=== PATIENT | male | born 1945 | race Caucasian/White ===

== ENCOUNTER 2016-06-09 21:59 | Observation (INO) | payer OTHER ==
[2016-06-09] MEDS ORDERED: NS 1,000 ML IV ONE (22:16)
[2016-06-09 22:23] LABS: % IMMATURE GRANULYOCYTES 0.3 % (0.0-1.1); ABSOLUTE IMMATURE GRANULOCYTES 0.04 10^3/uL (0.00-0.10); ADD DIFF? NO; ADD MORPH? NO; ADD SCAN? NO; ATYPICAL LYMPHOCYTE FLAG 0 (0-99); FRAGMENT RBC FLAG 0 (0-99); HEMATOCRIT 51.3 % (40.0-51.0); HEMOGLOBIN 17.1 g/dL (13.7-17.5); LEFT SHIFT FLG 0 (0-99); LIPEMIA HEMOLYSIS FLAG 80 (0-99); MEAN CELL HEMOGLOBIN 32.1 pg (27.9-34.1); MEAN CELL HEMOGLOBIN CONCENTR. 33.3 g/dL (32.4-36.7); MEAN CELL VOLUME 96.4 fL (81.5-99.8); MEAN PLATELET VOLUME 11.1 fL (8.7-11.7); PLATELET CLUMPS FLAG 0 (0-99); PLATELET COUNT 271 10^3/uL (150-400); RED BLOOD CELL COUNT 5.32 10^6/uL (4.40-6.38); RED CELL DISTRIBUTION WIDTH 13.1 % (11.5-15.2)
--- NOTE | 2016-06-09 22:24 | EDPHY ---
H & P HPI/ROS: HPI CHIEF COMPLAINT: Dizziness/lightheaded HISTORY OF PRESENT ILLNESS: This patient very pleasant 70-year-old male presents emergency room by EMS, he has significant past medical history for hypertension, hyperlipidemia, anxiety, PTSD, asthma, sarcoid, chronic kidney disease, BPH, presents to the emergency room with lightheadedness. He tells me since around 6:30 p.m. he developed lightheadedness. He tells me that it is only when he goes to stand up or walk. He denies lightheadedness dizziness nausea chest pain shortness of breath at rest. He tells me around 6 o'clock he took a Xanax dose which he normally takes up to 3 mg a day, he had a Sandra this evening with a shot of liquor, and then developed onset of lightheadedness. Patient tells me does normally drink 2 drinks of alcohol per evening. Tells me that every time he goes to stand up and walk he gets lightheaded, a feeling as if he is going to pass out or fall over. He does not describe a specific direction he is being pulled. He denies when this happens palpitations , shortness of breath, chest pain, headache or neck pain. No nausea or diaphoresis. States 1 on for over 2 hours he became concerned that he still could not walk so he called 911. He tells me he laid down in bed for prolonged period of time and this helped him with his lightheadedness he does not have lightheadedness when he is lying flat. Past Medical History: Hypertension, hyperlipidemia, anxiety, PTSD, asthma, BPH , sarcoid, chronic kidney disease Past Surgical History: right total hip, L5/S1 hemilaminectomy Social History: Daily use of alcohol 2 drinks per evening, daily use of Xanax, denies drugs, tobacco, marijuana Family History: noncontributory ROS REVIEW OF SYSTEMS: A comprehensive 10 point review of systems is otherwise negative aside from elements mentioned in the history of present illness. Exam Constitutional triage nursing summary reviewed, vital signs reviewed, awake/ alert. Eyes normal conjunctivae and sclera, EOMI, PERRLA. HENT normal inspection, atraumatic, moist mucus membranes, no epistaxis, neck supple/ no meningismus, no raccoon eyes. Respiratory clear to auscultation bilaterally, normal breath sounds, no respiratory distress, no wheezing. Cardiovascular rate normal, regular rhythm, no murmur, no edema, distal pulses normal. Gastrointestinal soft, non-tender, no rebound, no guarding, normal bowel sounds, no distension, no pulsatile mass. Genitourinary no CVA tenderness. Musculoskeletal no midline vertebral tenderness, full range of motion, no calf swelling, no tenderness of extremities, no meningismus, good pulses, neurovascularly intact. Skin pink, warm, & dry, no rash, skin atraumatic. Neurologic awake, alert and oriented x 3, AAOx3, moves all 4 extremities equally, motor intact, sensory intact, CN II-XII intact, normal cerebellar, normal vision, normal speech. Psychiatric normal mood/affect. Heme/Lymph/Immune no lymphadenopathy. Differential Diagnosis: includes but is not limited to in a particular order, orthostatic hypotension, vasovagal syncope, cardiac arrhythmia, electrolyte abnormality, dehydration, doubt acute CVA, doubt acute MO Medical Decision Making:This patient had an IV established be placed on full global recruiter will obtain EKG, blood work including electrolytes, troponin, patient had a chest x-ray, CT scan of his head without contrast will check orthostatics he will be hydrated with IV fluids normal saline 1 L been ordered. Re-evaluation: EKG interpretation by me on record in [facility] system. Impression time of EKG 07/26/2023 this is sinus rhythm rate of 69, there is motion artifact noted in lead 1, 2, AVR, V4 V5 V6. Otherwise unremarkable no acute ischemic changes specifically no ST elevation, ST depression, T-wave abnormality. No significant prolonged intervals. I will repeat this EKG shortly due to the motion artifact. CT scan of the head without IV contrast. The results of the study are negative for acute abnormality . The study was read by Dr. Palafox. I viewed the images myself on the PACS system. EKG interpretation by me on record in [facility] system. Impression time of EKG 23 awake, this is sinus rhythm rate of 65, there are borderline T-wave abnormalities noted in lead 2, 3, AVF otherwise unremarkable EKG. ED x-ray chest one view: this is negative for acute cardiopulmonary disease. 2349: I did re-evaluate this patient this time he is resting comfortably no distress he denies chest pain, shortness of breath, dizziness or lightheadedness at this time. It is noted he does have T-wave abnormalities in inferior leads on his repeat EKG when I compare this to his old EKG dated 2011 this is a change for him. Due to his creatinine of 1.6 , lightheadedness, unable to ambulate without feeling lightheaded, EKG changes I will admit him to the hospital for observation. Plan will be serial enzymes and serial EKGs, IV hydration. Re-evaluation in morning, if patient feels much better okay to DC. Most likely cause of lightheadedness a combination alcohol, Xanax, marijuana in the setting of dehydration. Spoke with Dr. Bernal the hospitalist service who agrees to admit the patient. Source: Patient, EMS - Personal History Tetanus Vaccine Date: Less than 10 years - Medical/Surgical History Hx Diabetes: No - Social History Smoking Status: Never smoked Constitutional: Initial Vital Signs Temperature (C) 36.4 C 06/09/16 21:59 Heart Rate 78 06/09/16 21:59 Respiratory Rate 16 06/09/16 21:59 Blood Pressure 138/93 H 06/09/16 21:59 O2 Sat (%) 97 06/09/16 21:59 O2 Delivery Mode Room Air Allergies/Adverse Reactions: ciprofloxacin HCl [From Cipro] Allergy (Severe, Verified 06/09/16 22:22) Anaphylaxis/HIVES Penicillins Allergy (Severe, Verified 06/09/16 22:22) Anaphylaxis/HIVES hydrocodone bitartrate [From Vicodin] Allergy (Verified 06/09/16 22:22) lisinopril Allergy (Verified 06/09/16 22:22) Home Medications: Medication Instructions Recorded ALPRAZolam [Xanax 0.5 MG (*)] 0.5 mg PO 5XD PRN 02/19/15 Atorvastatin Calcium [Lipitor 80 40 mg PO HS 02/19/15 mg] Pseudoephedrine HCl [Sudafed 30mg 30 mg PO DAILY 02/19/15 (OTC)] Valsartan [Diovan (*)] 80 mg PO DAILY 02/19/15 diphenhydrAMINE [Benadryl 25 MG 25 mg PO HS 02/19/15 (*)] Albuterol [Proventil Inhaler HFA 2 puffs IH DAILY PRN 06/09/16 (*)] Aspirin [Aspirin 81mg (*)] 81 mg PO DAILY 06/09/16 Triamcinolone Acetonide [Nasacort] 1 spray EACHNARE BID PRN 06/09/16 predniSONE 10 mg PO DAILY 06/09/16 Acetaminophen [Tylenol ES 500 mg 500 - 1,000 mg PO Q6HRS PRN #0 tab 06/10/16 (*)] Melatonin [Melatonin 3 MG (*)] 9 mg PO HS 06/10/16 Medical Decision Making - Data Points Laboratory Results: Laboratory Results 06/09/16 22:03 06/09/16 22:03 Medications Given: Discontinued Medications Alprazolam (Xanax) 0.5 mg PO BID [facility], 1928[facility]1983 Stop: 12/07/16 10:29 Last Admin: 06/10/16 10:33 Dose: 0.5 mg Aspirin (Aspirin) 81 mg PO DAILY [facility], [facility]1983 Stop: 12/07/16 10:29 Last Admin: 06/10/16 10:43 Dose: 81 mg Atorvastatin Calcium (Lipitor) 40 mg PO DAILY SARAY Stop: 12/07/16 10:29 Last Admin: 06/10/16 10:32 Dose: 40 mg Sodium Chloride (Ns) 1,000 mls @ 0 mls/hr IV ONCE ONE PRN Reason: As Directed Stop: 06/09/16 22:17 Last Admin: 06/09/16 22:30 Dose: 1,000 mls Sodium Chloride (Ns) 1,000 mls @ 100 mls/hr IV CONT SARAY Stop: 12/07/16 01:14 Last Admin: 06/10/16 01:44 Dose: 1,000 mls Prednisone (Prednisone) 10 mg PO DAILY SARAY Stop: 12/07/16 10:29 Last Admin: 06/10/16 10:43 Dose: 10 mg Pseudoephedrine HCl (Sudafed) 30 mg PO DAILY [facility], [facility]1983 Stop: 12/07/16 10:29 Last Admin: 06/10/16 10:38 Dose: Not Given Valsartan (Diovan) 80 mg PO DAILY [facility], [facility]1983 Stop: 12/07/16 10:59 Last Admin: 06/10/16 10:32 Dose: 80 mg Departure - Departure Disposition: [facility] Acute Clinical Impression: Lightheaded, Dehydration, Acute kidney injury Condition: Fair
[2016-06-09 22:26] LABS: INR 0.97 (0.83-1.16); PROTIME(PATIENT) 12.8 SEC (12.0-15.0)
--- NOTE | 2016-06-09 22:26 | CPEKG ---
Heart Rate: 69 RR Interval: 870 P-R Interval: 164 QRSD Interval: 98 QT Interval: 388 QTC Interval: 416 P [place]: 77 QRS [place]: 54 T Wave [place]: 28 EKG Severity - BORDERLINE ECG - EKG Impression: SINUS RHYTHM EKG Impression: PROBABLE LEFT ATRIAL ABNORMALITY Electronically Signed By: Bashir Rodriguez 11-Jun-2016 10:18:32
[2016-06-09 22:27] LABS: APTT 23.5 SEC (23.0-38.0)
[2016-06-09 22:30] LABS: ALANINE AMINOTRANSFERASE 34 IU/L (21-72); ALKALINE PHOSPHATASE 86 IU/L (38-126); ANION GAP 20 mEq/L (8-16); ASPARTATE AMINOTRANSFERASE 32 IU/L (17-59); BILIRUBIN,TOTAL 0.6 mg/dL (0.1-1.4); BILIRUBIN-CONJUGATED 0.3 mg/dL (0.0-0.5); BILIRUBIN-UNCONJUGATED 0.3 mg/dL (0.0-1.1); CALCIUM 10.2 mg/dL (8.5-10.4); CARBON DIOXIDE 26 mEq/l (22-31); CHLORIDE 99 mEq/L (97-110); CREATININE 1.6 mg/dL (0.7-1.3); GLOMERULAR FILTRATION RATE 43; GLUCOSE 119 mg/dL (70-100); POTASSIUM 3.8 mEq/L (3.5-5.2); SODIUM 145 mEq/L (134-144); TOTAL PROTEIN 8.3 g/dL (6.3-8.2)
[2016-06-09 22:42] LABS: TROPONIN I < 0.012 ng/mL (0-0.034)
[2016-06-09 22:47] LABS: CK-MB INTERPRETATION NEGATIVE (NEGATIVE); CREATINE KINASE-MB FRACTION 3.63 ng/mL (0-3.19)
--- NOTE | 2016-06-09 22:51 | DX ---
Portable Chest on June 09, 2016 at 2227 hours Clinical Indications: Chest pain and nausea. Comparison: August 25, 2015. Findings: Frontal view (only) shows clear lungs and no masses. Heart size and pulmonary vessels appea r normal. No evidence of pleural effusion. Some linear scarring is unchanged from prior examination Impression: No acute cardiopulmonary process.
--- NOTE | 2016-06-09 23:10 | CPEKG ---
Heart Rate: 65 RR Interval: 923 P-R Interval: 176 QRSD Interval: 100 QT Interval: 388 QTC Interval: 404 P [place]: 45 QRS [place]: 14 T Wave [place]: -5 EKG Severity - BORDERLINE ECG - EKG Impression: SINUS RHYTHM EKG Impression: PROBABLE LEFT ATRIAL ABNORMALITY EKG Impression: BORDERLINE T ABNORMALITIES, INFERIOR LEADS Electronically Signed By: Bashir Rodriguez 11-Jun-2016 10:18:23
[2016-06-09 23:32] LABS: ETHANOL SERUM 113 mg/dL (0-10)
[2016-06-10] MEDS ORDERED: ACETAMINOPHEN 500 MG TAB PO PRN (01:07)
[2016-06-10] MEDS ORDERED: NS 1,000 ML IV SCH (01:15)
[2016-06-10 01:16] VITALS: O2SAT 95
--- NOTE | 2016-06-10 04:04 | PDGENHP ---
[id number] is a 70-year-old male with a history of sarcoidosis, hypertension, BPH, osteoarthritis with degenerative joint disease of his L spine and L hip and anxiety disorder who presents to the ED complaining lightheadedness. Patient states he is currently being evaluated for left hip replacement surgery due to continued chronic pain in that joint. On day of presentation patient states he was home, didn't want to leave because of the snowstorm, but was feeling anxious. He decided to take CBD oil with dinner, as well as 1 of his prescribed Xanax and also made a Sandra. Shortly after ingesting this patient reports starting to feel dizzy and nauseous. He states understanding felt as if he were going to pass out so he went to his bed. He laid down and about 2 hours later again tried to walk, but could not because of a sensation of lightheadedness, so he decided to call EMS. He denies any falls, or associated chest pain, headache, palpitations, shortness of breath, vomiting. He also denies any recent travel, fevers, chills, cough, congestion. He reports normal appetite recently. On arrival to the ED patient was afebrile and hemodynamically stable. Labs revealed normal CBC and BMP, negative troponin. EKG revealed normal sinus rhythm without evidence of ischemia. CT head was obtained and did not show any acute abnormalities. Was given IV fluid hydration and admitted to the hospitalist service for further management. History Information - Allergies/Home Medication List Allergies/Adverse Reactions: ciprofloxacin HCl [From Cipro] Allergy (Severe, Verified 06/09/16 22:22) Anaphylaxis/HIVES Penicillins Allergy (Severe, Verified 06/09/16 22:22) Anaphylaxis/HIVES hydrocodone bitartrate [From Vicodin] Allergy (Verified 06/09/16 22:22) lisinopril Allergy (Verified 06/09/16 22:22) Home Medications: ALPRAZolam [Xanax 0.5 MG (*)] 0.5 mg PO 5XD PRN 02/19/15 [Last Taken 06/09/16] Atorvastatin Calcium [Lipitor 80 mg] 40 mg PO HS 02/19/15 [Last Taken 06/08/16] Pseudoephedrine HCl [Sudafed 30mg (OTC)] 30 mg PO DAILY 02/19/15 [Last Taken 09/20] Valsartan [Diovan (*)] 80 mg PO DAILY 02/19/15 [Last Taken 06/09/16] diphenhydrAMINE [Benadryl 25 MG (*)] 25 mg PO HS 02/19/15 [Last Taken 06/08/16] Albuterol [Proventil Inhaler HFA (*)] 2 puffs IH DAILY PRN 06/09/16 [Last Taken Unknown] Aspirin [Aspirin 81mg (*)] 81 mg PO DAILY 06/09/16 [Last Taken 06/08/16] Triamcinolone Acetonide [Nasacort] 1 spray EACHNARE BID PRN 06/09/16 [Last Taken Unknown] predniSONE 10 mg PO DAILY 06/09/16 [Last Taken 06/09/16] Melatonin [Melatonin 3 MG (*)] 9 mg PO HS 06/10/16 [Last Taken Unknown] I have personally reviewed and updated: family history, medical history, social history, surgical history - Past Medical History Additional medical history: HTn. BPH. HLD. PTSD/Anxiety disorder - Surgical History Reports: no pertinent surgical hx Additional surgical history: R hip replacement. 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 Review of Systems ROS: 10pt was reviewed & negative except for what was stated in HPI & below Physical Exam Temp Pulse Resp BP Pulse Ox 36.6 C 75 16 129/75 H 95 06/10/16 01:08 06/10/16 01:08 06/10/16 01:08 06/10/16 01:08 06/10/16 01:08 Constitutional: no apparent distress, appears nourished, not in pain Eyes: PERRL, anicteric sclera, EOMI Ears, Nose, Mouth, Throat: moist mucous membranes, hearing normal, ears appear normal, no oral mucosal ulcers Cardiovascular: regular rate and rhythym, no murmur, rub, or gallop, pulses symmetric bilaterally, No JVD, No edema Peripheral Pulses: 2+: dorsalis-pedis (R), dorsalis-pedis (L) Respiratory: no respiratory distress, no rales or rhonchi, clear to auscultation Gastrointestinal: normoactive bowel sounds, soft, non-tender abdomen, no palpable masses, No guarding, No rebound, No distension Genitourinary: no bladder fullness, no bladder tenderness Skin: warm, normal color, no rashes or abrasions, no fluctuance, No mottled Musculoskeletal: full muscle strength, no muscle tenderness, normal joint ROM, no joint effusions Neurologic: AAOx3, sensation intact bilaterally, CN II-XII Intact, No weakness, No numbness, No pronator drift Psychiatric: interacting appropriately, not anxious, not encephalopathic, thought process linear Lab Data & Imaging Review 06/10/16 05:00 06/10/16 05:00 WBC 11.72 10^3/uL (3.80-9.50) H 06/09/16 22:03 RBC 5.32 10^6/uL (4.40-6.38) 06/09/16 22:03 Hgb 17.1 g/dL (13.7-17.5) 06/09/16 22:03 Hct 51.3 % (40.0-51.0) H 06/09/16 22:03 MCV 96.4 fL (81.5-99.8) 06/09/16 22:03 MCH 32.1 pg (27.9-34.1) 06/09/16 22:03 MCHC 33.3 g/dL (32.4-36.7) 06/09/16 22:03 RDW 13.1 % (11.5-15.2) 06/09/16 22:03 Plt Count 271 10^3/uL (150-400) D 06/09/16 22:03 MPV 11.1 fL (8.7-11.7) 06/09/16 22:03 Neut % (Auto) 55.4 % (39.3-74.2) 06/09/16 22:03 Lymph % (Auto) 36.6 % (15.0-45.0) 06/09/16 22:03 Leake % (Auto) 6.8 % (4.5-13.0) 06/09/16 22:03 Eos % (Auto) 0.5 % (0.6-7.6) L 06/09/16 22:03 Baso % (Auto) 0.4 % (0.3-1.7) 06/09/16 22:03 Nucleat RBC Rel Count 0.0 % (0.0-0.2) 06/09/16 22:03 Absolute Neuts (auto) 6.48 10^3/uL (1.70-6.50) 06/09/16 22:03 Absolute Lymphs (auto) 4.29 10^3/uL (1.00-3.00) H 06/09/16 22:03 Absolute Monos (auto) 0.80 10^3/uL (0.30-0.80) 06/09/16 22:03 Absolute Eos (auto) 0.06 10^3/uL (0.03-0.40) 06/09/16 22:03 Absolute Basos (auto) 0.05 10^3/uL (0.02-0.10) 06/09/16 22:03 Absolute Nucleated RBC 0.00 10^3/uL (0-0.01) 06/09/16 22:03 Immature Gran % 0.3 % (0.0-1.1) 06/09/16 22:03 Immature Gran # 0.04 10^3/uL (0.00-0.10) 06/09/16 22:03 PT 12.8 SEC (12.0-15.0) 06/09/16 22:03 INR 0.97 (0.83-1.16) 06/09/16 22:03 APTT 23.5 SEC (23.0-38.0) 06/09/16 22:03 Sodium 145 mEq/L (134-144) H 06/09/16 22:03 Potassium 3.8 mEq/L (3.5-5.2) 06/09/16 22:03 Chloride 99 mEq/L (97-110) 06/09/16 22:03 Carbon Dioxide 26 mEq/l (22-31) 06/09/16 22:03 Anion Gap 20 mEq/L (8-16) 06/09/16 22:03 BUN 24 mg/dL (7-23) H 06/09/16 22:03 Creatinine 1.6 mg/dL (0.7-1.3) H 06/09/16 22:03 Estimated GFR 43 06/09/16 22:03 Glucose 119 mg/dL (70-100) H 06/09/16 22:03 Calcium 10.2 mg/dL (8.5-10.4) 06/09/16 22:03 Magnesium 2.0 mg/dL (1.6-2.3) 06/09/16 22:03 Total Bilirubin 0.6 mg/dL (0.1-1.4) 06/09/16 22:03 Conjugated Bilirubin 0.3 mg/dL (0.0-0.5) 06/09/16 22:03 Unconjugated Bilirubin 0.3 mg/dL (0.0-1.1) 06/09/16 22:03 AST 32 IU/L (17-59) 06/09/16 22:03 ALT 34 IU/L (21-72) 06/09/16 22:03 Alkaline Phosphatase 86 IU/L (38-126) 06/09/16 22:03 Creatine Kinase 188 IU/L (0-224) 06/09/16 22:03 CK-MB (CK-2) Fraction 3.63 ng/mL (0-3.19) H 06/09/16 22:03 CK-MB (CK-2) % 1.9 % (0.0-4.0) 06/09/16 22:03 Creatine Kinase Interp NEGATIVE (NEGATIVE) 06/09/16 22:03 Troponin I < 0.012 ng/mL (0-0.034) 06/09/16 22:03 NT-Pro-B Natriuret Pep 100 pg/mL (0-125) 06/09/16 22:03 Total Protein 8.3 g/dL (6.3-8.2) H D 06/09/16 22:03 Albumin 5.0 g/dL (3.5-5.0) 06/09/16 22:03 Lipase 97.0 IU/L (23-300) 06/09/16 22:03 Ethyl Alcohol 113 mg/dL (0-10) H 06/09/16 22:03 Visualized and Interpreted Chest x-ray results: Yes Chest X-Ray results: no infiltrate, normal Visualized and Interpreted imaging results: Yes Interpretation: CT head: no acute hemorrhage or infact noted Visualized and Interpreted EKG results: Yes EKG Interpretation: Positive for: normal sinsus rhythm (no st/t wave changes) Assessment & Plan Assessment: Patient is a 70-year-old male with history of hypertension, BPH, sarcoidosis, osteoarthritis and anxiety disorder who presents to the ED complaining of lightheadedness after ingesting alcohol, benzos and CBD oil. Labs revealed evidence of mild dehydration so he was admitted to the observation unit for further management. Plan: # lightheaded/pre-syncopal Likely related to acute ingestion of small amounts of alcohol, CBD oil and Xanax 0.5 mg. Labs do show note element of dehydration which could also be contributing. Low suspicion for cardiac etiology, however will rule out ACS and check TTE. Neuro exam is nonfocal. - trend troponins, repeat AM EKG - check TTE - IVF hydration overnight # elevated Cr It seems patient's baseline creatinine is 1.2-1.3, so it is slightly increased on presentation today. Likely pre-renal, will give IVF hydration and reassess. # chronic HTN BP stable on presentation, can cont home med. # sarcoidosis Resp status stable. Albuterol prn. # anxiety/PTSD Can consider discontinuing benzo use in this elderly patient. Will need to address this with his outpatient PMD/psychiatrist. # dispo: admit to observation unit # full code
[2016-06-10 05:11] VITALS: RESP 18
[2016-06-10 05:14] LABS: % IMMATURE GRANULYOCYTES 0.3 % (0.0-1.1); ABSOLUTE IMMATURE GRANULOCYTES 0.02 10^3/uL (0.00-0.10); ADD DIFF? NO; ADD MORPH? NO; ADD SCAN? NO; ATYPICAL LYMPHOCYTE FLAG 0 (0-99); FRAGMENT RBC FLAG 0 (0-99); HEMATOCRIT 40.4 % (40.0-51.0); HEMOGLOBIN 13.6 g/dL (13.7-17.5); LEFT SHIFT FLG 0 (0-99); LIPEMIA HEMOLYSIS FLAG 80 (0-99); MEAN CELL HEMOGLOBIN 31.9 pg (27.9-34.1); MEAN CELL HEMOGLOBIN CONCENTR. 33.7 g/dL (32.4-36.7); MEAN CELL VOLUME 94.6 fL (81.5-99.8); MEAN PLATELET VOLUME 11.1 fL (8.7-11.7); PLATELET CLUMPS FLAG 10 (0-99); PLATELET COUNT 212 10^3/uL (150-400); RED BLOOD CELL COUNT 4.27 10^6/uL (4.40-6.38); RED CELL DISTRIBUTION WIDTH 13.2 % (11.5-15.2)
[2016-06-10 05:33] LABS: ANION GAP 8 mEq/L (8-16); CALCIUM 8.9 mg/dL (8.5-10.4); CARBON DIOXIDE 26 mEq/l (22-31); CHLORIDE 106 mEq/L (97-110); CREATININE 1.2 mg/dL (0.7-1.3); GLOMERULAR FILTRATION RATE 60; GLUCOSE 103 mg/dL (70-100); POTASSIUM 4.2 mEq/L (3.5-5.2); SODIUM 140 mEq/L (134-144)
--- NOTE | 2016-06-10 06:35 | CT ---
CT Brain (Without Contrast) 2255 hours History: Dizziness. Comparison: None relevant. Technique: Axial computed tomographic images of the brain without contrast. Dose reduction techniques were utilized. Findings: Ventricles, cisterns, and sulci are widened consistent with atrophy. No hydrocephalus, mid line shift/herniation, or epidural/subdural hematomas. No acute intraparenchymal hemorrhage or mass e ffect. Cerebrovascular atherosclerosis. Hypodensities in the white matter of bilateral cerebral hemis pheres. Bone windows demonstrate no displaced fractures. Paranasal sinuses and mastoid air cells are clear. Impression: 1. Mild atrophy. 2. No acute hemorrhage, hydrocephalus, or mass effect. 3. Cerebrovascular atherosclerosis. 4. No definite acute infarct. 5. Mild microvascular ischemic disease. Critical results relayed by Dr. Palafox to Dr. Lovett on June 09, 2016.
[2016-06-10 06:49] LABS: COLOR YELLOW; LEUKOCYTE ESTERASE,URINE NEGATIVE (NEGATIVE); NITRITE,URINE NEGATIVE (NEGATIVE)
[2016-06-10 08:28] VITALS: BP 124/75; PULSE 88; TEMP 98
--- NOTE | 2016-06-10 09:38 | PDDCSUM ---
Discharge Summary Discharge Summary: Dates of service 06/10-06/10/16 Hospital course by problem # near syncope: in setting of inadvertently taking 4 x the usual amount of TBD oil, a shot of tequila, 0.5mg xanax and being on prednisone. No longer having any sxs of dizzyness etc. In discussion with patient, he was mostly feeling " too high", did not have any chest pain or palpitations etc. CT head neg, trops neg, labs essentially at baseline # abnormal ecg: concerns for inferior twave flattening compared to prior, with baseline fluctuation a bit difficult to be certain, echo ordered and pending. So long as no concerns on echo, will dc home. # ckd: at baseline # BPH: continue usual meds # anxiety/ptsd: continue xanax # skin rash: had recent biopsy, on prednisone # dispo: dc home F/u with PCP and Thor of cardiology
[2016-06-10] MEDS ORDERED: ALBUTEROL 60 PUFFS/8 GM MDI IH PRN (10:25)
[2016-06-10] MEDS ORDERED: ALPRAZolam 0.5 MG TAB PO PRN (10:25)
[2016-06-10] MEDS ORDERED: Triamcinolone Acetonide [Nasacort] 1 SPRAY EACHNARE PRN (10:25)
[2016-06-10] MEDS ORDERED: VALSARTAN 80 MG TAB PO SCH ×2 (10:30→11:00)
[2016-06-10] MEDS ORDERED: ATORVASTATIN CALCIUM 40 MG TAB PO SCH ×2 (10:30→21:00)
[2016-06-10] MEDS ORDERED: PSEUDOEPHEDRINE HCL 30 MG TAB PO SCH (10:30)
[2016-06-10] MEDS ORDERED: ALPRAZolam 0.25 MG TAB PO SCH (10:30)
[2016-06-10] MEDS ORDERED: ALPRAZolam 0.5 MG TAB PO SCH (10:30)
[2016-06-10] MEDS ORDERED: predniSONE 10 MG TAB PO SCH (10:30)
[2016-06-10] MEDS ORDERED: ASPIRIN 81 MG CHEWABLE TAB PO SCH (10:30)
[2016-06-10] MEDS ORDERED: MELATONIN 3 MG TAB PO SCH (21:00)
[2016-06-10] MEDS ORDERED: diphenhydrAMINE 25 MG CAP PO SCH (21:00)
== END 2016-06-10 11:46 | disposition home or self-care (01) ==
LOC: EDUNIT# → F1N 06-10 00:47
PROVIDERS: ADMIT Internal Medicine; ATTEND Internal Medicine
DX: R55 Syncope and collapse (principal); R94.31 Abnormal electrocardiogram [ECG] [EKG]; T40.7X5A Adverse effect of cannabis (derivatives), initial encounter; N18.9 Chronic kidney disease, unspecified; F41.9 Anxiety disorder, unspecified; E86.0 Dehydration; R21 Rash and other nonspecific skin eruption; I12.9 Hypertensive chronic kidney disease with stage 1 through stage 4 chronic kidney disease, or unspecified chronic kidney disease; N17.9 Acute kidney failure, unspecified; E78.5 Hyperlipidemia, unspecified; F43.10 Post-traumatic stress disorder, unspecified; J45.909 Unspecified asthma, uncomplicated; D86.9 Sarcoidosis, unspecified; N40.0 Benign prostatic hyperplasia without lower urinary tract symptoms; I67.2 Cerebral atherosclerosis; Z96.641 Presence of right artificial hip joint; Z96.619 Presence of unspecified artificial shoulder joint; Z88.0 Allergy status to penicillin
CPT/HCPCS: 70450; 71010; 93005; 99285; G0378; G0480

== ENCOUNTER → 2016-06-18 | Outpatient (CLI) | payer OTHER ==
--- NOTE | 2016-06-18 17:07 | CT ---
CT Scan of the Chest (Without Contrast) Clinical Indications: Sarcoidosis. Pulmonary nodules. Technique: Multidetector helical CT was performed from the superior thoracic inlet to the diaphragm. No intravenous contrast was given. The radiologist manipulated images at the computer workstation. Dose reduction techniques were utilized. Comparison: December 04, 2013. Findings: The upper lobes are clear. There is some stable linear atelectatic scarring in the right lower lobe. A 5-mm pulmonary nodule in the right lower lobe, series #3, image #154, is stable. Line ar scarring at the left base is stable. Heart size is normal. Mild to moderate coronary artery calc ification is present on this nongated study. The aorta and pulmonary vasculature are unremarkable. Small mediastinal lymph nodes are present. Limited examination of the upper abdomen is unremarkable. Impression: Stable bibasilar linear scarring and stable right lower lobe pulmonary nodule. These ne ed no further follow up.
== END ==
LOC: FIMAGING 14:24
PROVIDERS: ATTEND Internal Medicine Pulmonary Disease
DX: R91.1 Solitary pulmonary nodule (principal); D86.9 Sarcoidosis, unspecified

== ENCOUNTER 2016-07-07 07:21 | Inpatient (IN) | payer OTHER ==
[~2016-07-07 07:21] MED LIST: ACETAMINOPHEN 325 MG TAB PO ONE; CHLORHEXIDINE GLUC HIBICLENS 118 ML BTL TP ONE; DEXAMETHASONE 4 MG/ML VIAL IVP ONE; FAMOTIDINE 20 MG TAB PO ONE; ROPIVACAINE 0.2% 80 MG, EPINEPHrine 0.2 MG in BAG 0 ML IU ONE; TRANEXAMIC ACID 3,000 MG in NS 50 ML IRR ONE; VANCOMYCIN HCL/NORMAL SALINE 250 ML IV ONE
[2016-07-07] MEDS ORDERED: TRANEXAMIC ACID 3,000 MG/50 ML BAG IRR ONE (07:30)
[2016-07-07] MEDS ORDERED: SKIN ADHESIVE (DERMABOND) 1 EACH TP ONE (07:30)
[2016-07-07] MEDS ORDERED: MIDAZOLAM 2 MG/2 ML VIAL ONE (09:05)
[2016-07-07] MEDS ORDERED: PROPOFOL/EMULSION 500 MG/50 ML BOTTLE IV ONE ×2 (09:11→09:54)
[2016-07-07] MEDS ORDERED: fentaNYL 100 MCG/2 ML INJ ONE ×2 (09:46→11:12)
[2016-07-07] MEDS ORDERED: PHARMACY PAIN CONSULT 1 EA MISC PRN (10:40)
[2016-07-07] MEDS ORDERED: DIPHENOXYLATE/ATROPINE LOMOTIL 1 TAB PO PRN (10:40)
[2016-07-07] MEDS ORDERED: PROMETHAZINE HCL 25 MG/ML INJ IVP PRN (10:40)
[2016-07-07] MEDS ORDERED: ONDANSETRON DISINTEGRATING 4 MG TAB PO PRN (10:40)
[2016-07-07] MEDS ORDERED: MAGNESIUM HYDROXIDE 30 ML UDCUP PO PRN (10:40)
[2016-07-07] MEDS ORDERED: diphenhydrAMINE 25 MG CAP PO PRN (10:40)
[2016-07-07] MEDS ORDERED: BISACODYL 10 MG SUPP PR PRN (10:40)
[2016-07-07] MEDS ORDERED: CYCLOBENZAPRINE 10 MG TAB PO PRN (10:40)
[2016-07-07] MEDS ORDERED: PROMETHAZINE HCL 25 MG SUPPR PR PRN (10:40)
[2016-07-07] MEDS ORDERED: METOCLOPRAMIDE 10 MG/2 ML VIAL IVP PRN (10:40)
[2016-07-07] MEDS ORDERED: LACTULOSE 20 GM/30 ML UDCUP PO PRN (10:40)
[2016-07-07] MEDS ORDERED: POLYETHYLENE GLYCOL 3350 17 GM PKT PO PRN (10:40)
[2016-07-07] MEDS ORDERED: TEMAZEPAM 15 MG CAP PO PRN (10:40)
[2016-07-07] MEDS ORDERED: ONDANSETRON 4 MG/2 ML VIAL IVP PRN (10:40)
--- NOTE | 2016-07-07 10:40 | POSTOPPROG ---
Post Op Note Date of Operation: 07/07/16 Surgeon: Alvin Hernandez Kitchen Supervisor: edmar hernandez Anesthesiologist: dr. regalado Anesthesia: Spinal Pre-op Diagnosis: left hip OA Post-op Diagnosis: same Indication: left hip pain due to OA that failed conservative measures Procedure: L WALTER ant approach Findings: severe hip OA Inf/Abcess present in the surg proc area at time of surgery?: No EBL: 100-500
[2016-07-07] MEDS ORDERED: TRIAMCINOLONE ACETONIDE EACHNARE PRN (10:42)
[2016-07-07] MEDS ORDERED: NON-FORMULARY NEW DRUG (Albuterol [Proventil Inhaler Hfa (*)] 2 PUFFS) IH PRN (10:42)
[2016-07-07] MEDS ORDERED: ALPRAZolam 0.5 MG TAB PO PRN (10:42)
[2016-07-07] MEDS ORDERED: LR 1,000 ML IV SCH (11:00)
--- NOTE | 2016-07-07 11:43 | DX ---
Single view pelvis at 1115 hours History: Left total hip arthroplasty. Findings: Bilateral total hip arthroplasties appear in anatomic alignment. Severe degenerative disk d isease at L4-L5 and L5-S1 with disk space narrowing and osteophytes. No destructive pelvic lesions. C alcified phleboliths in the pelvis. Impression: Bilateral total hip arthroplasties appear in anatomical alignment.
[2016-07-07] MEDS ORDERED: HYDROCODONE/APAP 5/325 TAB ONE (12:12)
[2016-07-07] MEDS ORDERED: ALBUTEROL 60 PUFFS/8 GM MDI IH PRN (12:46)
[2016-07-07] MEDS: HYDROCODONE/APAP 5/325 TAB PO PRN ×2 (12:51→19:10)
--- NOTE | 2016-07-07 19:45 | GOP ---
[f rep st] OPERATIVE REPORT DATE OF OPERATION: 07/07/2016 SURGEON: David Abraham MD TISSUE COORDINATOR: Radha Abraham PA-C ANESTHESIA: Spinal. PREOPERATIVE DIAGNOSIS: Left hip osteoarthritis. POSTOPERATIVE DIAGNOSIS: Left hip osteoarthritis. PROCEDURE PERFORMED: Left total hip arthroplasty with x-ray. FINDINGS: ESTIMATED BLOOD LOSS: 200 cc. INDICATIONS: The patient has progressively worsening arthritis of the hip which has failed medical m anagement. The patient understands the treatment options including continued non-operative care and has selected surgical intervention. The patient has decided to undergo total hip arthroplasty via th e direct anterior approach, understanding the risks of the procedure including, but not limited to, n eurovascular injury, infection, persistent pain, component wear and loosening, deep venous thrombosis , pulmonary embolism, limb length inequality, hip instability (including dislocation), and intra-oper ative fractures. DESCRIPTION OF PROCEDURE: After proper identification of the patient including verification and jeri ing the surgical site, the patient was brought to the operating room and placed in the supine positio n. All bony prominences were well padded. Anesthesia was induced without complication and intraveno us prophylactic antibiotics were administered prior to skin incision. The operative leg was placed in the Trumpf Arch table extension and the well leg in a Yellofin leg ho lder. The patient was prepped and draped in the usual sterile fashion. The C-arm was draped for int ra-operative fluoroscopy to check acetabular position, femoral component position including leg lengt h and femoral offset. Attention was then drawn to surgical exposure of the hip. An incision was made with a #10 Bard Kymberly r blade starting 3 cm lateral and 3 cm distal to the anterior superior iliac spine measuring 8-10 cm and coursing distally toward the greater trochanter. The skin and subcutaneous tissues were divided sharply down to the fascia ankush. The fascia ankush was incised in line with the skin incision exposing the underlying tensor fascia ankush muscle. The muscle was bluntly elevated from the fascia and the f irst extracapsular Cobra retractor was placed laterally at the junction of the superior femoral neck and greater trochanter. The lateral femoral circumflex vessels were identified, cauterized, and divi ded with the Aquamantys bipolar cautery. The deep investing fascia of the TFL was divided to allow p michaelle mobilization of the muscle preventing damage during the retraction. The reflected head of the rectus femoris muscle was elevated off the anterior hip capsule and a medial Cobra retractor was plac ed just proximal to the lesser trochanter. The anterior capsulotomy was made sharply from the superolateral acetabulum to the saddle junction of the superior femoral neck and greater trochanter, then coursing inferomedial towards the lesser troc hanter. The retractors were then placed in the intracapsular position for femoral neck osteotomy. C orresponding to pre-operative templating, the osteotomy was made with the oscillating saw carefully p rotecting the greater trochanter and soft tissues. The femoral head was removed from the acetabulum with a corkscrew and confirmed to be severely arthritic with exposed bone, deformity and osteophytes. Similar findings were confirmed in the acetabulum. The Arch table extension was then placed in 40 degrees external rotation. Attention was then drawn to the acetabular preparation. After placement of the anterior and posterio r Cobra retractors outside the labrum and intracapsular, the circumferential labrum was removed sharp ly. The foveal contents were then removed and hemostasis obtained with cautery. The first reamer selected was sized using the removed femoral head. Reaming began with medialization and then commenced in 2 mm increments at 45 degrees of abduction and 15 degrees of anteversion using fluoroscopic navigation. Reaming ceased 1 mm less than the definitive acetabular component and jose a esponded to the pre-operative templating. The final acetabular component was inserted using fluorosc opy to achieve proper orientation yielding excellent purchase and stability in the acetabulum. The f inal acetabular liner was then placed and its seating confirmed. Attention was then turned to the femur. The Arch table extension was placed in extension and adducti on, delivering the osteotomized femoral neck into the wound. A 2-pronged femoral elevator was placed at the calcar and another at the tip of the greater trochanter. The posterolateral capsule was rele ased with cautery allowing mobilization of the femur lateral and anterior for preparation. The exter nal rotators were visualized and preserved. A curette and rongeur were used to open the starting poi nt for broaching. Serial broaching started with the #0 broach and ended with the broach that exhibit ed excellent fit in the proximal femur. A change in pitch during mallet strikes was accompanied by t he inability to advance the broach any further. The trial reduction was performed and fluoroscopic n avigation was utilized to check limb length. Adjustments were made to equalize limb length according ly. After the final trials were accepted they were removed and the wound was copiously lavaged. The femo ral component was seated to the same depth as the final broach and the femoral head was impacted onto the clean trunnion. The hip was then reduced for the final time and once more fluoroscopy was used to check that limb length equality was achieved. The wound was irrigated and closed in layers, the fascia ankush with 2-0 Quill, the subcutaneous tissue with 2-0 Quill, and the skin with Dermabond. Sterile dressings were applied. Final sharps and spon ge counts were accurate. The patient was then transferred to a hospital bed and brought to the [facility] room in stable condition. IMPLANTS: Accolade II size 5 x 132, acetabular component 56 mm Titanium, the liner is a Trident X3 3 6 mm, the head is a Biolox Delta 36 mm -2.5. /[id number]/MODL
[2016-07-07] MEDS ORDERED: DIAZEPAM 5 MG TAB PO PRN (19:59)
[2016-07-07] MEDS: ASPIRIN 325 MG TAB PO SCH (19:59)
[2016-07-07] MEDS: SENNOSIDES/DOCUSATE SODIUM TAB PO SCH (19:59)
[2016-07-07] MEDS: FAMOTIDINE 20 MG TAB PO SCH (19:59)
[2016-07-07] MEDS ORDERED: VANCOMYCIN 750 MG in D5W 150 ML IV ONE (20:30)
[2016-07-08] MEDS: HYDROCODONE/APAP 5/325 TAB PO PRN ×2 (03:10→07:53)
[2016-07-08 04:48] LABS: HEMATOCRIT 37.9 % (40.0-51.0); HEMOGLOBIN 12.7 g/dL (13.7-17.5)
[2016-07-08 05:36] LABS: ANION GAP 8 mEq/L (8-16); CALCIUM 8.5 mg/dL (8.5-10.4); CARBON DIOXIDE 24 mEq/l (22-31); CHLORIDE 105 mEq/L (97-110); CREATININE 1.2 mg/dL (0.7-1.3); GLOMERULAR FILTRATION RATE 60; GLUCOSE 117 mg/dL (70-100); POTASSIUM 4.2 mEq/L (3.5-5.2); SODIUM 137 mEq/L (134-144)
[2016-07-08] MEDS: SENNOSIDES/DOCUSATE SODIUM TAB PO SCH (07:53)
[2016-07-08] MEDS: ASPIRIN 325 MG TAB PO SCH (07:54)
[2016-07-08] MEDS: FAMOTIDINE 20 MG TAB PO SCH (07:54)
[2016-07-08 08:13] VITALS: BP 122/94; PULSE 76; RESP 18; TEMP 98.5; O2SAT 94
[2016-07-08] MEDS ORDERED: ATORVASTATIN CALCIUM 40 MG TAB PO SCH (09:00)
[2016-07-08] MEDS ORDERED: VALSARTAN 80 MG TAB PO SCH (09:00)
--- NOTE | 2016-07-08 09:13 | PDFACE2FAC ---
Face to Face Encounter 1. I certify that this patient is under my care and that I, or a nurse practitioner or physician's transition assistant working with me, had a oalg-hq-icfy encounter that meets the physician rmgr-gj-[id number] encounter requirements with this patient on 07/08/16. 2. I certify that based on my findings, the following services are medically necessary home health services: [X Nursing] [X Physical Therapy] [ Speech-Language Pathology] 3. The medical condition and clinical findings that support the need for specialized skills, knowledge and judgement of the above services are: [s/p L WALTER anterior approach, patient lives alone. must use FWW,cannot drive for several weeks postop] 4. I certify this patient is homebound* because [the patient's condition restricts their ability to leave their home except with the assistance of another individual or the aid of a supportive device.] patient must use FWW for ambulation, cannot drive for several weeks postop WALTER I certify that this patient is confined to his/her home and needs intermittent group home care, physical and/or speech therapy. This patient is under my care and I have authorized home health services. * Homebound is defined by Medicare as follows: absences from home require considerable and tacking effort and or for medical reasons or holiness services or are infrequent or of short duration when for other reasons*.
--- NOTE | 2016-07-08 09:15 | PDIAF ---
- Diagnosis Diagnosis: s/p L WALTER Code Status: Full Code - Medication Management Discharge Medications: Medications to Continue on Transfer ALPRAZolam [Xanax 0.5 MG (*)] 0.5 mg PO 5XD PRN 02/19/15 [Last Taken 07/07/16 06 :30] Atorvastatin Calcium [Lipitor 80 mg] 40 mg PO HS 02/19/15 [Last Taken 07/06/16] Pseudoephedrine HCl [Sudafed 30mg (OTC)] 30 mg PO BID 02/19/15 [Last Taken 07/06 12:00] Valsartan [Diovan (*)] 80 mg PO DAILY 02/19/15 [Last Taken 07/04/16] diphenhydrAMINE [Benadryl 25 MG (*)] 25 mg PO HS 02/19/15 [Last Taken 06/08/16] Albuterol [Proventil Inhaler HFA (*)] 2 puffs IH DAILY PRN 06/09/16 [Last Taken Unknown] Triamcinolone Acetonide [Nasacort] 1 spray EACHNARE BID PRN 06/09/16 [Last Taken 07/07/16] Melatonin [Melatonin 3 MG (*)] 10 mg PO HS 06/10/16 [Last Taken 07/06/16] Diazepam 5 mg PO HS PRN 07/07/16 [Last Taken Unknown] Aspirin [Aspirin 325 mg (*)] 325 mg PO DAILY #20 tab 07/08/16 [Last Taken Unknown] Hydrocodone/APAP 5/325 [[place] 5/325 (*)] 1 - 2 tab PO Q6HRS PRN #30 tab [Last Taken Unknown] Sennosides/Docusate Sodium [Senokot-S] 1 - 2 tab PO BID #0 tab 07/08/16 [Last Taken Unknown] Discharge Medications: Refer to the Discharge Home Medication list for PRN reason. - Orders Services needed: Home Care, [facility], Physical Therapy Home Care Face to Face: I certify that this patient was under my care and that I had the required [id number] encounter meeting the encounter requirements on the discharge day. My findings support the fact that the patient is homebound as defined in CMS Chapter 7 Medicare Benefits Manual 30.1.1, The condition of the patient is such that there exists a normal inability to leave home and consequently, leaving home would require a considerable and taxing effort. Diet Recommendation: no restrictions on diet Diet Texture: Regular Texture Diet Additional: Joint Protocol-Hip Replacement. Follow up with Dr. Copeland office as scheduled 07/27/16 at 1:45pm. After surgery instructions: Take Aspirin 325mg by mouth once daily for 3 weeks (helps to prevent blood clots). Wear thigh high DARELL hose on both legs during the daytime for 2 weeks (helps to prevent blood clots and decrease swelling in the surgical leg). It is ok to remove DARELL hose at night time to give your legs a break. It is common for swelling and bruising to occur in the entire surgical leg even extending to the foot, if concerned call Dr. Daly office [phone]. Weight bearing as tolerated. Use a walker for 7-14 days. Do exercises in the book 2-3 times a day. Ice at least 3-5 times a day for 30 minutes each time, if not more often. If you have further questions that are not addressed here, please look at the information packet handed to you at the preop appointment. Most will be answered on the FAQs, after surgery instructions and incision care pages. You may also call Dr. Min montemayor with questions as well. *IF YOU HAVE A LIFE THREATENING EMERGENCY, CALL 911. FOR NON-LIFE THREATENING ISSUES, PLEASE CALL DR. COPELAND OFFICE FIRST. A PHYSICIAN IS JUNIOR STAFF ACCOUNTANT 27/12. Incision/ Dressing Care: May shower tomorrow, please cover incision dressing (ewing one) with saran wrap or wxqtv-[id number] before showering as the incision dressing is water resistant, but not waterproof. Keep the incision (ewing) dressing clean and dry. If the incision dressing gets soiled or wet underneath, change dressing to the dressing given to you by the hospital. (ewing dressing will turn black if drainage occurs). Remove incision dressing (ewing one) two weeks after surgery. Leave steri strips alone. They will fall off on their own. Do not have anyone else remove the incision dressing prior to the stated recommendation (2 weeks after surgery). If there are incision concerns, contact Dr. Daly office. (Radha or Dr. Abraham may remove earlier if concerns arise). If incision site (ewing dressing) has drainage, call Dr. Daly office, . Radha and Dr. Abraham may ask you to come into the office for further evaluation - Follow Up Care Current Providers and Referrals: Alvin Abraham MD [Medical Doctor] - 07/27/16 2:00 pm Segun Swain [Primary Care Provider] -
--- NOTE | 2016-07-08 09:28 | SOAPPROG ---
SOAP Progress Note Assessment/Plan: Assessment: Patient is doing well POD 1 s/p L WALTER 1.Pain management: pain is well controlled on oral pain meds 2.Anemia: level is expected initially postop. Asymptomatic. Cont to monitor for symptoms 3.VTE ppx: recommend aspirin 325mg daily. Cont DARELL hoshayder and SCD 4. d/c planning: d/c to home today pending release from PT. Patient would like PT as he had after his R WALTER. Orders have been placed with case management. 5. postop urinary retention: straight cath'd yesterday, resolved today. Plan: 07/08/16 09:26 07/08/16 09:26 Subjective: Jason is doing well today, denies SOB, chest pain and N/V. Objective: Vital Signs Temp Pulse Resp BP Pulse Ox 36.9 C 76 18 122/94 H 94 07/08/16 08:00 07/08/16 08:00 07/08/16 08:00 07/08/16 08:00 07/08/16 08:00 Laboratory Results 07/08/16 04:37 07/08/16 04:37 07/07/16 07/08/16 07/09/16 05:59 05:59 05:59 Intake Total 3679 Output Total 1100 Balance 2579 LLE: incision dressing is clean and dry, NVI, +pf/df ICD10 Worksheet Patient Problems: Problems Problem Status Diagnosed Primary localized osteoarthritis of left hip Acute Osteoarthritis of hip Acute
--- NOTE | 2016-07-08 10:32 | GDS ---
[f rep st] DISCHARGE SUMMARY ADMISSION DIAGNOSIS: Left hip osteoarthritis. DISCHARGE DIAGNOSIS: Left hip osteoarthritis. PROCEDURE: Left total hip arthroplasty. VTE PROPHYLAXIS: Aspirin recommend 3 weeks daily. BRIEF DESCRIPTION OF HOSPITAL STAY: Patient was admitted for an elective joint arthroplasty. The pa nereida tolerated the procedure well and has passed physical therapy. The patient was given appropriat e antibiotic prophylaxis and venous thromboembolism prophylaxis. The patient's pain was well control led on oral pain medication, patient was holding down food, and had urinated. Decision was made to d ischarge the patient. The patient was given post-operative prescriptions pre-operatively. PLAN: Please follow up as scheduled on July 27, 2016 at 2:00 p.m. /[id number]/MODL
== END 2016-07-08 11:18 | disposition home health service (06) | DRG 470 ==
LOC: F3N 07:21
PROVIDERS: ADMIT Orthopaedic Surgery; ATTEND Orthopaedic Surgery
PROC: 0SRB04Z Replacement of Left Hip Joint with Ceramic on Polyethylene Synthetic Substitute, Open Approach (ICD-10-PCS; principal; 2016-07-07 09:15)
DX: M16.12 Unilateral primary osteoarthritis, left hip (principal); I10 Essential (primary) hypertension; D86.9 Sarcoidosis, unspecified; Z99.81 Dependence on supplemental oxygen
CPT/HCPCS: 97110-GP; 97116-GP; 97161-GP; 97165-GO; G8978-GP-CI; G8979-GP-CI; G8980-GP-CI; G8987-GO-CI; G8988-GO-CI; G8989-GO-CI; J0171; J1100; J2250; J2704; J2795; J3010; J3370

== ENCOUNTER → 2016-08-26 | Outpatient (CLI) | payer OTHER | LOC: BMCIMAGING 15:57 | PROVIDERS: ATTEND Family Medicine | DX: M25.572 Pain in left ankle and joints of left foot (principal) ==

== ENCOUNTER → 2016-09-28 | Outpatient (CLI) | payer OTHER | LOC: FIMAGING 12:13 | PROVIDERS: ATTEND Family Medicine | DX: M25.572 Pain in left ankle and joints of left foot (principal) ==

== ENCOUNTER → 2016-11-03 | Outpatient (CLI) | payer OTHER | LOC: BMCIMAGING 15:19 | PROVIDERS: ATTEND Family Medicine | DX: M25.541 Pain in joints of right hand (principal); M25.542 Pain in joints of left hand; N20.0 Calculus of kidney ==

== ENCOUNTER → 2016-11-03 | Outpatient (CLI) | payer OTHER | LOC: FIMAGING 18:50 | PROVIDERS: ATTEND Family Medicine | DX: R05 Cough (principal) ==

== ENCOUNTER → 2016-11-09 | Outpatient (CLI) | payer OTHER | LOC: FIMAGING 19:50 | PROVIDERS: ATTEND Family Medicine | DX: M75.111 Incomplete rotator cuff tear or rupture of right shoulder, not specified as traumatic (principal); M75.81 Other shoulder lesions, right shoulder; M75.51 Bursitis of right shoulder; M19.011 Primary osteoarthritis, right shoulder ==

== ENCOUNTER → 2016-11-09 | Outpatient (CLI) | payer OTHER | LOC: BMCIMAGING 13:00 | PROVIDERS: ATTEND Internal Medicine Endocrinology, Diabetes & Metabolism | DX: E04.2 Nontoxic multinodular goiter (principal) | CPT/HCPCS: 76536-PO ==

== ENCOUNTER → 2017-02-14 | Outpatient (CLI) | payer OTHER | LOC: BMCIMAGING 14:08 | PROVIDERS: ATTEND Family Medicine | DX: M19.071 Primary osteoarthritis, right ankle and foot (principal) ==

== ENCOUNTER → 2017-04-14 | Outpatient (CLI) | payer OTHER | LOC: BMCIMAGING 15:41 | PROVIDERS: ATTEND Family Medicine | DX: R05 Cough (principal) ==

== ENCOUNTER → 2017-05-17 | Outpatient (CLI) | payer OTHER | LOC: BMCIMAGING 13:10 | PROVIDERS: ATTEND Physician Assistant | DX: S99.921A Unspecified injury of right foot, initial encounter (principal) ==

== ENCOUNTER → 2017-07-11 | Outpatient (CLI) | payer OTHER | LOC: FIMAGING 14:22 | PROVIDERS: ATTEND Family Medicine | DX: R23.2 Flushing (principal); R06.02 Shortness of breath; R91.1 Solitary pulmonary nodule; Z87.09 Personal history of other diseases of the respiratory system ==

== ENCOUNTER → 2017-08-04 | Outpatient (CLI) | payer OTHER | LOC: BHFA 13:00 | PROVIDERS: ATTEND Internal Medicine Cardiovascular Disease | DX: J45.909 Unspecified asthma, uncomplicated (principal); D86.9 Sarcoidosis, unspecified | CPT/HCPCS: 94060; 94070; 94726; 94729; J7674 ==

== ENCOUNTER → 2017-10-19 | Outpatient (CLI) | payer OTHER | LOC: BHFA 11:00 | PROVIDERS: ATTEND Internal Medicine Interventional Cardiology | DX: D86.9 Sarcoidosis, unspecified (principal) ==

== ENCOUNTER → 2017-12-12 | Outpatient (CLI) | payer OTHER ==
[~2017-12-12] MED LIST changes: -ACETAMINOPHEN 325 MG TAB PO ONE; -CHLORHEXIDINE GLUC HIBICLENS 118 ML BTL TP ONE; -DEXAMETHASONE 4 MG/ML VIAL IVP ONE; -FAMOTIDINE 20 MG TAB PO ONE; +IOPAMIDOL (ISOVUE-300) 100 ML BTL ONE; -ROPIVACAINE 0.2% 80 MG, EPINEPHrine 0.2 MG in BAG 0 ML IU ONE; -TRANEXAMIC ACID 3,000 MG in NS 50 ML IRR ONE; -VANCOMYCIN HCL/NORMAL SALINE 250 ML IV ONE
== END ==
LOC: FIMAGING 12:02
PROVIDERS: ATTEND Internal Medicine Endocrinology, Diabetes & Metabolism
DX: E27.9 Disorder of adrenal gland, unspecified (principal)
CPT/HCPCS: 74170; Q9967; 82565-PO

== ENCOUNTER → 2018-03-29 | Outpatient (CLI) | payer OTHER | LOC: FIMAGING 13:14 | PROVIDERS: ATTEND Family Medicine | DX: Z13.820 Encounter for screening for osteoporosis (principal); M85.89 Other specified disorders of bone density and structure, multiple sites ==

== ENCOUNTER → 2018-04-19 | Outpatient (CLI) | payer OTHER | LOC: FIMAGING 14:42 | PROVIDERS: ATTEND Family Medicine | DX: R23.2 Flushing (principal); R68.89 Other general symptoms and signs; N28.1 Cyst of kidney, acquired; I70.0 Atherosclerosis of aorta | CPT/HCPCS: 74160; Q9967; 82565-PO ==

== ENCOUNTER → 2018-05-13 | Outpatient (CLI) | payer OTHER | LOC: FIMAGING 10:27 | PROVIDERS: ATTEND Family Medicine | DX: M51.36 Other intervertebral disc degeneration, lumbar region (principal); M43.16 Spondylolisthesis, lumbar region; M43.17 Spondylolisthesis, lumbosacral region; M99.73 Connective tissue and disc stenosis of intervertebral foramina of lumbar region; M54.6 Pain in thoracic spine ==

== ENCOUNTER → 2018-08-02 | Outpatient (CLI) | payer OTHER | LOC: FIMAGING 14:42 | PROVIDERS: ATTEND Physician Assistant Medical | DX: N20.0 Calculus of kidney (principal); I25.10 Atherosclerotic heart disease of native coronary artery without angina pectoris ==

== ENCOUNTER → 2018-08-25 | Outpatient (CLI) | payer OTHER ==
[~2018-08-25] MED LIST changes: -IOPAMIDOL (ISOVUE-300) 100 ML BTL ONE; +IOPAMIDOL (ISOVUE-370) 150 ML BTL IV ONE; +NITROGLYCERIN 0.4 MG BTL SL ONE
== END ==
LOC: FIMAGING 12:43
PROVIDERS: ATTEND Internal Medicine Interventional Cardiology
DX: D86.9 Sarcoidosis, unspecified (principal); I25.10 Atherosclerotic heart disease of native coronary artery without angina pectoris; J84.9 Interstitial pulmonary disease, unspecified
CPT/HCPCS: 71250; 75574; Q9967; 82565-PO

== ENCOUNTER → 2018-10-02 | Outpatient (CLI) | payer OTHER | DX: I25.10 Atherosclerotic heart disease of native coronary artery without angina pectoris (principal) | CPT/HCPCS: 78452; 93017; A9500 ==

== ENCOUNTER 2018-10-28 18:23 | Emergency (ER) | payer OTHER ==
[2018-10-28] MEDS ORDERED: KETOROLAC 30 MG/1 ML SDV IVP ONE (19:00)
[2018-10-28] MEDS ORDERED: HYDROmorphONE/DILAUDID 2 MG/ML INJ IVP ONE (19:00)
[2018-10-28] MEDS ORDERED: METOCLOPRAMIDE 10 MG/2 ML VIAL IVP ONE (19:00)
[2018-10-28] MEDS ORDERED: DEXAMETHASONE 10 MG/ML VIAL IVP ONE (19:00)
--- NOTE | 2018-10-28 19:04 | EDPHY ---
H & P Stated Complaint: bad hangover, LUGO, nausea Time Seen by Provider: 10/28/18 18:50 HPI/ROS: CHIEF COMPLAINT: Worsening headache HISTORY OF PRESENT ILLNESS: Patient is a 73-year-old man who comes to the emergency department complaining of worsening headache. He states that he has had mild intermittent headaches that begin in his neck and radiate up through his scalp. This began 4 months ago after he fell and tore his left rotator cuff. However he bought a new bed last week and ever since then he has had daily headaches although they have been mild. They tend to start in his neck and then radiates up the back his head. Today his headache has been more severe and he also developed some nausea. No vomiting. No vertigo. No focal weakness or deficits. No fevers. No new trauma. He can ambulate without difficulty. Severity: Moderate Modifying factors: He tried taking Aleve, Arelis-[place] and Pepto-Bismol at home without relief. REVIEW OF SYSTEMS: Constitutional: denies: chills, fever, recent illness, recent injury EENTM: denies: blurred vision, double vision, nose congestion Respiratory: denies: cough, shortness of breath Cardiac: denies: chest pain, irregular heart rate, lightheadedness, palpitations Gastrointestinal/Abdominal: denies: abdominal pain, diarrhea, vomiting, blood streaked stools Genitourinary: denies: dysuria, frequency, hematuria, pain Musculoskeletal: denies: joint pain, muscle pain Skin: denies: lesions, rash, jaundice, bruising Neurological: See HPI denies:numbness, paresthesia, tingling, dizziness, weakness Hematologic/Lymphatic: denies: blood clots, easy bleeding, easy bruising Immunologic/allergic: denies: HIV/AIDS, transplant 10 systems reviewed and negative except as noted EXAM: GENERAL: Well-appearing, well-nourished and in no acute distress. HEAD: Atraumatic, normocephalic. EYES: No nystagmus, Pupils equal round and reactive to light, extraocular movements intact, sclera anicteric, conjunctiva are normal. ENT: TMs normal, nares patent, oropharynx clear without exudates. Moist mucous membranes. NECK: Normal range of motion, supple without lymphadenopathy or JVD. LUNGS: Breath sounds clear to auscultation bilaterally and equal. No wheezes rales or rhonchi. HEART: Regular rate and rhythm without murmurs, rubs or gallops. ABDOMEN: Soft, nontender, normoactive bowel sounds. No guarding, no rebound. No masses appreciated. BACK: No CVA tenderness, no spinal tenderness, step-offs or deformities EXTREMITIES: Normal range of motion, no pitting or edema. No clubbing or cyanosis. NEUROLOGICAL: Cranial nerves II through XII grossly intact. Normal speech, normal gait. 5/5 strength, normal movement in all extremities, normal sensation , normal reflexes, normal cerebellar exam, no pronator drift. PSYCH: Normal mood, normal affect. SKIN: Warm, dry, normal turgor, no visible rashes or lesions. Source: Patient Exam Limitations: No limitations - Personal History Current Tetanus/Diphtheria Vaccine: Yes Current Tetanus Diphtheria and Acellular Pertussis (TDAP): Yes Tetanus Vaccine Date: Less than 10 years - Medical/Surgical History Hx Asthma: Yes Hx Chronic Respiratory Disease: No Hx Diabetes: No Hx Cardiac Disease: Yes Hx Renal Disease: Yes Hx Cirrhosis: No Hx Alcoholism: Yes Hx HIV/AIDS: No Hx Splenectomy or Spleen Trauma: No Other PMH: CAD without stents, + Ca score, PTSD, CKD, R hip surgery, BPH, HTN, hyperlipidemia, arthritis, sarcoidosis, asthma - Family History Significant Family History: No pertinent family hx - Social History Smoking Status: Never smoked Alcohol Use: Sober Drug Use: None Constitutional: Initial Vital Signs Temperature (C) 36.7 C 10/28/18 18:27 Heart Rate 78 10/28/18 18:27 Respiratory Rate 16 10/28/18 18:27 Blood Pressure 144/100 H 10/28/18 18:27 O2 Sat (%) 95 10/28/18 18:27 O2 Delivery Mode Room Air Allergies/Adverse Reactions: ciprofloxacin HCl [From Cipro] Allergy (Severe, Verified 07/08/16 11:38) Anaphylaxis/HIVES Penicillins Allergy (Severe, Verified 07/08/16 11:38) Anaphylaxis/HIVES oxycodone HCl [From OxyContin] Allergy (Intermediate, Verified 07/08/16 11:38) Other-Enter Comments lisinopril Allergy (Verified 07/08/16 11:38) Home Medications: Medication Instructions Recorded ALPRAZolam [Xanax 0.5 MG (*)] 0.5 mg PO 5XD PRN 02/19/15 Atorvastatin Calcium [Lipitor 80 40 mg PO HS 02/19/15 mg] Pseudoephedrine HCl [Sudafed 30mg 30 mg PO BID 02/19/15 (OTC)] Valsartan [Diovan (*)] 80 mg PO DAILY 02/19/15 diphenhydrAMINE [Benadryl 25 MG 25 mg PO HS 02/19/15 (*)] Albuterol [Proventil Inhaler HFA 2 puffs IH DAILY PRN 06/09/16 (*)] Triamcinolone Acetonide [Nasacort] 1 spray EACHNARE BID PRN 06/09/16 Melatonin [Melatonin 3 MG (*)] 10 mg PO HS 06/10/16 Diazepam 5 mg PO HS PRN 07/07/16 Aspirin [Aspirin 325 mg (*)] 325 mg PO DAILY #20 tab 07/08/16 Hydrocodone/APAP 5/325 [[place] 1 - 2 tab PO Q6HRS PRN #30 tab 07/08/16 5/325 (*)] Sennosides/Docusate Sodium 1 - 2 tab PO BID #0 tab 07/08/16 [Senokot-S] Metoclopramide [Reglan 10 mg tab 10 mg PO BID PRN #10 tab 10/28/18 (RX)] Medical Decision Making - Diagnostics Imaging Results: Imaging Impressions Head CT 10/28/18 19:00 Impression: No evidence for acute intracranial abnormality. Mild periventricular and deep hemispheric white matter change, which is nonspecific and can be seen with small vessel ischemic disease. Results called and discussed with Sly Santos MD on October 28, 2018 at 1955 hours. Head CTA 10/28/18 19:01 Impression: Intracranial atherosclerosis without evidence for significant stenosis. CT Angiogram Neck With Contrast Enhancement and Multiplanar Reconstructions History: Headache and neck pain. Technique: 1.25 mm axial multidetector helical CT imaging was performed through the neck while 85 mL Isovue-370 were injected intravenously without complication. The images were then transferred to an independent workstation where multiplanar and three-dimensional reconstructions were performed by the interpreting physician and reviewed at multiple windows. Dose reduction techniques were utilized. CTA Findings: Calcified atherosclerotic plaque is seen at both carotids and proximal internal carotid arteries with less than 50% stenosis. Internal carotid arteries are tortuous bilateral. Mild dilatation of the mid left internal carotid artery for a 7 mm segment with 7.5 mm in width. There is also some mild dilatation of the distal internal carotid artery at the craniocervical junction up to 8 mm in diameter. No evidence for dissection in either carotid artery. Vertebral arteries are patent without significant stenosis or dissection. The distal right vertebral artery is small after the takeoff of the right posterior inferior cerebellar artery. CT Neck Findings: Multilevel degenerative disk and degenerative joint disease is seen in the cervical spine. Fusion of C6 and C7. No suspicious lymphadenopathy. Lung apices are clear. Impression: 1. Calcified atherosclerosis in the carotid bulbs bilaterally and proximal internal carotid arteries with less than 50% stenosis. Tortuosity and areas of mild ectasia in the internal carotid arteries bilateral, right greater than left. No evidence for dissection. 2. Multilevel degenerative disk and degenerative joint disease cervical spine. Fusion of C6 and C7. Results called and discussed with Dr. Sly Santos at 10/28/2018 2015 hours. Measurement of carotid stenosis is based on the residual internal carotid diameter with [place] Symptomatic Carotid Endarterectomy Trial (NASCET) based stenosis levels. Neck CTA 10/28/18 19:01 Impression: Intracranial atherosclerosis without evidence for significant stenosis. CT Angiogram Neck With Contrast Enhancement and Multiplanar Reconstructions History: Headache and neck pain. Technique: 1.25 mm axial multidetector helical CT imaging was performed through the neck while 85 mL Isovue-370 were injected intravenously without complication. The images were then transferred to an independent workstation where multiplanar and three-dimensional reconstructions were performed by the interpreting physician and reviewed at multiple windows. Dose reduction techniques were utilized. CTA Findings: Calcified atherosclerotic plaque is seen at both carotids and proximal internal carotid arteries with less than 50% stenosis. Internal carotid arteries are tortuous bilateral. Mild dilatation of the mid left internal carotid artery for a 7 mm segment with 7.5 mm in width. There is also some mild dilatation of the distal internal carotid artery at the craniocervical junction up to 8 mm in diameter. No evidence for dissection in either carotid artery. Vertebral arteries are patent without significant stenosis or dissection. The distal right vertebral artery is small after the takeoff of the right posterior inferior cerebellar artery. CT Neck Findings: Multilevel degenerative disk and degenerative joint disease is seen in the cervical spine. Fusion of C6 and C7. No suspicious lymphadenopathy. Lung apices are clear. Impression: 1. Calcified atherosclerosis in the carotid bulbs bilaterally and proximal internal carotid arteries with less than 50% stenosis. Tortuosity and areas of mild ectasia in the internal carotid arteries bilateral, right greater than left. No evidence for dissection. 2. Multilevel degenerative disk and degenerative joint disease cervical spine. Fusion of C6 and C7. Results called and discussed with Dr. Sly Santos at 10/28/2018 2015 hours. Measurement of carotid stenosis is based on the residual internal carotid diameter with [place] Symptomatic Carotid Endarterectomy Trial (NASCET) based stenosis levels. Imaging: Discussed imaging studies w/ call or contact centre operator Radiologist ED Course/Re-evaluation: 8:[address] results. The patient's headache is resolved. He declines further workup or testing at this time. Discussed follow-up. Discussed indications for returning. Discussed limitations workup. He is requesting a prescription for headache medicine. He has been told not to take Tylenol by his liver doctor in told not to take Aleve or ibuprofen by his lead housekeeper. He also states that he does not do well with narcotics. Differential Diagnosis: Partial list of the Differential diagnosis considered include but were not limited to; tension headache, muscle spasm, migraine and although unlikely based on the history and physical exam, I also considered dissection, mass, aneurysm, tumor, CVA. I discussed these differential diagnoses and the plan with the patient as well as the usual and expected course. The patient understands that the diagnosis is provisional and that in medicine we are not always correct and that further workup is often warranted. Usual and customary warnings were given. All of the patient's questions were answered. The patient was instructed to return to the emergency department should the symptoms at all worsen or return, otherwise to followup with the physician as we discussed. - Data Points Laboratory Results: Laboratory Results 10/28/18 18:50 10/28/18 18:50 10/28/18 10/28/18 10/28/18 19:12 19:10 18:50 WBC RBC Hgb POC Hgb 17.7 gm/dL H gm/dL (13.7-17.5) Hct POC Hct 52 % H % (40-51) MCV MCH MCHC RDW Plt Count MPV Neut % (Auto) Lymph % (Auto) [place] % (Auto) Eos % (Auto) Baso % (Auto) Nucleat RBC Rel Count Absolute Neuts (auto) Absolute Lymphs (auto) Absolute Monos (auto) Absolute Eos (auto) Absolute Basos (auto) Absolute Nucleated RBC Immature Gran % Immature Gran # POC Sodium 138 mEq/L mEq/L (135-145) Sodium 137 mEq/L mEq/L (135-145) POC Potassium 3.8 mEq/L mEq/L (3.3-5.0) Potassium 3.9 mEq/L mEq/L (3.5-5.2) POC Chloride 100 mEq/L mEq/L (97-110) Chloride 100 mEq/L mEq/L (97-110) Carbon Dioxide 26 mEq/l mEq/l (22-31) POC Total CO2 29 mEq/L mEq/L (22-31) Anion Gap 11 mEq/L mEq/L (6-14) POC BUN 21 mg/dL mg/dL (7-23) BUN 19 mg/dL mg/dL (7-23) Creatinine 1.1 mg/dL mg/dL (0.7-1.3) POC Creatinine 1.3 mg/dL mg/dL (0.7-1.3) Estimated GFR > 60 Glucose 109 mg/dL H mg/dL (70-100) POC Glucose 113 mg/dL H mg/dL (70-100) Calcium 9.5 mg/dL mg/dL (8.5-10.4) POC Troponin I 0.03 ng/mL ng/mL (0.00-0.08) 10/28/18 18:50 WBC 7.20 10^3/uL 10^3/uL (3.80-9.50) RBC 4.99 10^6/uL 10^6/uL (4.40-6.38) Hgb 16.3 g/dL g/dL (13.7-17.5) POC Hgb Hct 47.7 % % (40.0-51.0) POC Hct MCV 95.6 fL fL (81.5-99.8) MCH 32.7 pg pg (27.9-34.1) MCHC 34.2 g/dL g/dL (32.4-36.7) RDW 13.3 % % (11.5-15.2) Plt Count 187 10^3/uL 10^3/uL (150-400) MPV 11.0 fL fL (8.7-11.7) Neut % (Auto) 62.2 % % (39.3-74.2) Lymph % (Auto) 27.2 % % (15.0-45.0) [place] % (Auto) 8.2 % % (4.5-13.0) Eos % (Auto) 1.5 % % (0.6-7.6) Baso % (Auto) 0.6 % % (0.3-1.7) Nucleat RBC Rel Count 0.0 % % (0.0-0.2) Absolute Neuts (auto) 4.48 10^3/uL 10^3/uL (1.70-6.50) Absolute Lymphs (auto) 1.96 10^3/uL 10^3/uL (1.00-3.00) Absolute Monos (auto) 0.59 10^3/uL 10^3/uL (0.30-0.80) Absolute Eos (auto) 0.11 10^3/uL 10^3/uL (0.03-0.40) Absolute Basos (auto) 0.04 10^3/uL 10^3/uL (0.02-0.10) Absolute Nucleated RBC 0.00 10^3/uL 10^3/uL (0-0.01) Immature Gran % 0.3 % % (0.0-1.1) Immature Gran # 0.02 10^3/uL 10^3/uL (0.00-0.10) POC Sodium Sodium POC Potassium Potassium POC Chloride Chloride Carbon Dioxide POC Total CO2 Anion Gap POC BUN BUN Creatinine POC Creatinine Estimated GFR Glucose POC Glucose Calcium POC Troponin I Medications Given: Discontinued Medications Dexamethasone (Decadron Injection) 10 mg IVP EDNOW ONE Stop: 10/28/18 19:01 Last Admin: 10/28/18 19:15 Dose: Not Given Hydromorphone HCl (Dilaudid) 0.5 mg IVP EDNOW ONE Stop: 10/28/18 19:01 Last Admin: 10/28/18 19:15 Dose: Not Given Ketorolac Tromethamine (Toradol) 15 mg IVP EDNOW ONE Stop: 10/28/18 19:01 Last Admin: 10/28/18 19:15 Dose: 15 mg Metoclopramide HCl (Reglan Injection) 10 mg IVP EDNOW ONE Stop: 10/28/18 19:01 Last Admin: 10/28/18 19:15 Dose: Not Given Point of Care Test Results: Chemistry 10/28/18 10/28/18 19:12 19:10 POC Sodium 138 mEq/L mEq/L (135-145) POC Potassium 3.8 mEq/L mEq/L (3.3-5.0) POC Chloride 100 mEq/L mEq/L (97-110) POC Total CO2 29 mEq/L mEq/L (22-31) POC BUN 21 mg/dL mg/dL (7-23) POC Creatinine 1.3 mg/dL mg/dL (0.7-1.3) POC Glucose 113 mg/dL H mg/dL (70-100) POC Troponin I 0.03 ng/mL ng/mL (0.00-0.08) ISTAT H&H 10/28/18 19:12 POC Hgb 17.7 gm/dL H gm/dL (13.7-17.5) POC Hct 52 % H % (40-51) Departure - Departure Disposition: Home, Routine, Self-Care Clinical Impression: Headache Qualifiers: Headache type: unspecified Headache chronicity pattern: acute headache Intractability: not intractable Qualified Code(s): R51 - Headache Condition: Fair Instructions: Acute Headache (ED) Referrals: Ben Griffin MD [Primary Care Provider] - As per Instructions Prescriptions: Metoclopramide [Reglan 10 mg tab (RX)] 10 mg PO BID PRN #10 tab PRN Reason: Headache
[2018-10-28 19:13] LABS: PLATELET COUNT 187 10^3/uL (150-400)
[2018-10-28] MEDS ORDERED: IOPAMIDOL (ISOVUE 370) 100 ML BTL IV ONE (19:17)
--- NOTE | 2018-10-28 19:29 | CPEKG ---
Test Reason : OPEN Blood Pressure : / mmHG Vent. Rate : 078 BPM Atrial Rate : 079 BPM P-R Int : 170 ms QRS Dur : 094 ms QT Int : 368 ms P-R-T Axes : 073 048 020 degrees QTc Int : 420 ms Sinus rhythm Multiple ventricular premature complexes Confirmed by Pat Dyson ([id number]) on 10/28/2018 7:28:41 PM Referred By: PAT DYSON Confirmed By:Pat Dyson
[2018-10-28 20:40] VITALS: BP 159/91
== END 2018-10-28 20:40 | disposition home or self-care (01) ==
DX: R51 Headache (principal); I65.23 Occlusion and stenosis of bilateral carotid arteries; M50.31 Other cervical disc degeneration, high cervical region; M47.812 Spondylosis without myelopathy or radiculopathy, cervical region
CPT/HCPCS: 70450; 70496; 70498; 93005; 96374; 96375; 99285; J1100; J1885; J2765; Q9967; 82435-PO; 82565-PO; 82947-PO; 84132-PO; 84295-PO; 84484-ER; 84520-PO; 85014-ER

== ENCOUNTER → 2018-11-13 | Outpatient (CLI) | payer OTHER | LOC: BMCIMAGING 13:08 ==